=== PATIENT | male | born 1990 | race Caucasian/White ===

== ENCOUNTER 2017-05-25 19:32 | Emergency (ER) | payer SELFPAY ==
[2017-05-25 20:38] VITALS: BP 146/72
== END 2017-05-25 20:38 | disposition short-term general hospital (02) ==
LOC: ED 19:32
DX: S31.101A Unspecified open wound of abdominal wall, left upper quadrant without penetration into peritoneal cavity, initial encounter (principal); W26.0XXA Contact with knife, initial encounter; Y99.8 Other external cause status; Y93.89 Activity, other specified; Y92.89 Other specified places as the place of occurrence of the external cause
CPT/HCPCS: Q0092